=== PATIENT | male | born 2000 | race Caucasian/White ===

== ENCOUNTER 2019-08-24 15:06 | Emergency (ER) | payer OTHER ==
[~2019-08-24] VITALS: Ht 177.8 cm; Wt 65.8 kg
== END 2019-08-24 17:59 | disposition home or self-care (01) ==
LOC: ER 15:06
DX: M94.0 Chondrocostal junction syndrome [Tietze] (principal)

== ENCOUNTER 2020-08-29 08:37 | Emergency (ER) | payer OTHER ==
[~2020-08-29] VITALS: Ht 177.8 cm; Wt 68.9 kg
[2020-08-29] MEDS ORDERED: AMOX-CLAV 875-1 EACH PO (13:57)
== END 2020-08-29 15:05 | disposition home or self-care (01) ==
LOC: ER 08:37
DX: B34.9 Viral infection, unspecified (principal); Z11.52 Encounter for screening for COVID-19

== ENCOUNTER 2021-05-20 13:05 | Emergency (ER) | payer OTHER ==
[~2021-05-20] VITALS: Ht 177.8 cm; Wt 68.0 kg
[~2021-05-20 13:05] MED LIST: AMOX-CLAV 875-1 EACH PO
== END 2021-05-20 17:13 | disposition home or self-care (01) ==
LOC: ER 13:05
DX: J03.90 Acute tonsillitis, unspecified (principal); Z20.822 Contact with and (suspected) exposure to COVID-19

== ENCOUNTER 2021-06-01 08:35 | Emergency (ER) | payer OTHER ==
[~2021-06-01] VITALS: Ht 177.8 cm; Wt 65.8 kg
[2021-06-01] MEDS ORDERED: ZITHROMAX500 MG PO (11:35)
== END 2021-06-01 12:54 | disposition home or self-care (01) ==
LOC: ER 08:35
DX: R07.0 Pain in throat (principal); Z91.011 Allergy to milk products

== ENCOUNTER 2023-02-26 07:38 | Emergency (ER) | payer OTHER ==
[~2023-02-26] VITALS: Ht 175.3 cm; Wt 68.0 kg
[~2023-02-26 07:38] MED LIST changes: +ZITHROMAX500 MG PO
[2023-02-26 10:09] LABS: HEMATOCRIT 46.9 % (39.0-48.0); HEMOGLOBIN 16.1 g/dL (13-16.00); MEAN CELL VOLUME 87.3 fL (80.0-100.00); MEAN CORPUSCULAR HEMOGLOBIN 29.9 pg (27.00-32.0); MEAN CORPUSCULAR HGB CONC 34.2 g/dl (32.0-36.0); PLATELET COUNT 186 K/uL (150-450); RED BLOOD COUNT 5.37 M/uL (4.00-6.00); RED CELL DISTRIBUTION WIDTH 13.5 % (11.5-14.5)
== END 2023-02-26 11:31 | disposition home or self-care (01) ==
LOC: ER 07:39
PROVIDERS: Emergency Medicine
DX: U07.1 COVID-19 (principal); Z91.011 Allergy to milk products; Z20.822 Contact with and (suspected) exposure to COVID-19

== ENCOUNTER 2023-10-21 10:37 | Emergency (ER) | payer OTHER ==
[~2023-10-21] VITALS: Ht 177.8 cm; Wt 72.6 kg
[2023-10-21] MEDS ORDERED: 0.9 % SODIUM CHLORIDE 1,000 ML IV STA (12:02)
[2023-10-21] MEDS ORDERED: FAMOTIDINE/PF 20 MG/2 ML VIAL ONE (12:28)
[2023-10-21 12:51] LABS: HEMATOCRIT 48.1 % (39.0-48.0); HEMOGLOBIN 16.9 g/dL (13-16.00); MEAN CELL VOLUME 85.3 fL (80.0-100.00); MEAN CORPUSCULAR HEMOGLOBIN 29.9 pg (27.00-32.0); MEAN CORPUSCULAR HGB CONC 35.1 g/dl (32.0-36.0); PLATELET COUNT 213 K/uL (150-450); RED BLOOD COUNT 5.64 M/uL (4.00-6.00); RED CELL DISTRIBUTION WIDTH 13.4 % (11.5-14.5)
[2023-10-21 13:19] LABS: CALCIUM 9.2 mg/dL (8.5-10.1); CREATININE SERUM 1.16 mg/dL (0.70-1.30); GFR 77.35; POTASSIUM 4.09 mEq/L (3.5-5.1)
[2023-10-21 13:39] LABS: URINE APPEARANCE Clear; URINE BILIRRUBIN Negative (NEGATIVE); URINE BLOOD Negative; URINE COLOR Yellow; URINE GLUCOSE Negative (NEGATIVE); URINE LEUKOCYTE Negative; URINE NITRATE Negative; URINE PROTEIN Negative (NEGATIVE)
[2023-10-21 13:40] LABS: URINE EPITHELIAL CELLS 2.1 uL (0.0-38.8); URINE WBC 9.4 uL (0.0-23.2)
[2023-10-21 13:50] LABS: URINE BACTERIA 2.5 uL (0.0-1933); URINE CAST 0.76 uL (0.0-1.40); URINE KETONE 40 (NEGATIVE); URINE RBC 1.2 uL (0.0-20.8)
[2023-10-21] MEDS ORDERED: CIPROFLOXACIN IN 5 % DEXTROSE 400 MG/200 ML PIGGYBAG IV ONE ×2 (14:28→14:30)
[2023-10-21] MEDS ORDERED: METRONIDAZOLE/SODIUM CHLORIDE 500 MG/100 ML PIGGYBACK IV ONE ×2 (14:28→14:30)
== END 2023-10-21 16:35 | disposition home or self-care (01) ==
LOC: ER 10:38
PROVIDERS: Emergency Medicine
DX: K52.89 Other specified noninfective gastroenteritis and colitis (principal); Z91.011 Allergy to milk products

== ENCOUNTER 2024-03-19 15:19 | Emergency (ER) | payer OTHER ==
[~2024-03-19] VITALS: Ht 177.8 cm; Wt 72.6 kg
[2024-03-19] MEDS ORDERED: FAMOTIDINE/PF 20 MG in 0.9 % SODIUM CHLORIDE 8 ML IV PUSH STA (16:27)
[2024-03-19] MEDS ORDERED: HYOSCYAMINE SULFATE 0.125 MG TAB.SUBL SL ONE (16:30)
[2024-03-19] MEDS ORDERED: 0.9 % SODIUM CHLORIDE 1,000 ML IV SCH (16:30)
[2024-03-19] MEDS ORDERED: ONDANSETRON HCL 2 MG/ML VIAL IV ONE (16:30)
[2024-03-19] MEDS ORDERED: FAMOTIDINE/PF 20 MG/2 ML VIAL ONE (16:40)
[2024-03-19] MEDS ORDERED: HYOSCYAMINE SULFATE 0.125 MG TAB.SUBL ONE (16:40)
[2024-03-19] MEDS ORDERED: ONDANSETRON HCL 2 MG/ML VIAL ONE (16:40)
[2024-03-19] MEDS ORDERED: ACETAMINOPHEN 500 MG GEL..CAP PO ONE (16:51)
[2024-03-19 16:54] LABS: HEMOGLOBIN 15.7 g/dL (13-16.00); MEAN CELL VOLUME 86.2 fL (80.0-100.00); MEAN CORPUSCULAR HGB CONC 34.9 g/dl (32.0-36.0); PLATELET COUNT 190 K/uL (150-450); RED BLOOD COUNT 5.22 M/uL (4.00-6.00); RED CELL DISTRIBUTION WIDTH 13.8 % (11.5-14.5)
[2024-03-19 17:30] LABS: ALBUMIN 3.8 gm/dL (3.4-5.0); BILIRUBIN TOTAL 1.37 mg/dL (0.3-1.2); CALCIUM 9.4 mg/dL (8.5-10.1); CREATININE SERUM 1.19 mg/dL (0.70-1.30); GFR 75.1; GLOBULINA 3.7 G/DL (2.4-3.5); POTASSIUM 3.94 mEq/L (3.5-5.1); TOTAL PROTEIN 7.5 gm/dL (6.4-8.2)
[2024-03-19] MEDS ORDERED: METRONIDAZOLE/SODIUM CHLORIDE 500 MG/100 ML PIGGYBACK IV ONE ×2 (17:37→17:45)
[2024-03-19] MEDS ORDERED: METRONIDAZOLE500 MG PO (18:03)
[2024-03-19] MEDS ORDERED: PROTONIX40 MG PO (18:03)
[2024-03-19] MEDS ORDERED: ONDANSETRON ODT8 MG PO (18:03)
[2024-03-19] MEDS ORDERED: INTESTINEX680 M1 PO (18:03)
== END 2024-03-19 19:03 | disposition home or self-care (01) ==
LOC: ER 15:21
PROVIDERS: General Practice
DX: K52.9 Noninfective gastroenteritis and colitis, unspecified (principal); R11.2 Nausea with vomiting, unspecified; Z91.011 Allergy to milk products

== ENCOUNTER 2024-03-19 23:25 | Emergency (ER) | payer OTHER ==
[~2024-03-19] VITALS: Ht 177.8 cm; Wt 72.6 kg
[~2024-03-19 23:25] MED LIST changes: +INTESTINEX680 M1 PO; +METRONIDAZOLE500 MG PO; +ONDANSETRON ODT8 MG PO; +PROTONIX40 MG PO
[2024-03-20] MEDS ORDERED: METOCLOPRAMIDE HCL 5 MG/ML VIAL IM STA (03:40)
[2024-03-20] MEDS ORDERED: 0.9 % SODIUM CHLORIDE 1,000 ML IV STA (03:41)
[2024-03-20] MEDS ORDERED: FAMOtidine 10 MG/ML (4ML VIAL) IV PUSH STA (03:42)
[2024-03-20] MEDS ORDERED: DIPHENOXYLATE HCL/ATROPINE 1 UDTAB TABLET PO STA ×2 (03:43→04:11)
[2024-03-20] MEDS ORDERED: HYOSCYAMINE SULFATE 0.125 MG TAB.SUBL SL ONE (03:45)
[2024-03-20] MEDS ORDERED: HYOSCYAMINE SULFATE 0.125 MG TAB.SUBL ONE (03:49)
[2024-03-20] MEDS ORDERED: METOCLOPRAMIDE HCL 5 MG/ML VIAL ONE (03:49)
[2024-03-20] MEDS ORDERED: FAMOTIDINE/PF 20 MG/2 ML VIAL ONE (03:49)
[2024-03-20 04:34] LABS: HEMATOCRIT 44.3 % (39.0-48.0); HEMOGLOBIN 15.5 g/dL (13-16.00); MEAN CELL VOLUME 86.5 fL (80.0-100.00); MEAN CORPUSCULAR HEMOGLOBIN 30.3 pg (27.00-32.0); PLATELET COUNT 169 K/uL (150-450); RED BLOOD COUNT 5.12 M/uL (4.00-6.00); RED CELL DISTRIBUTION WIDTH 13.6 % (11.5-14.5)
[2024-03-20 04:35] LABS: CREATININE SERUM 1.16 mg/dL (0.70-1.30); GFR 77.35; POTASSIUM 3.99 mEq/L (3.5-5.1)
[2024-03-20] MEDS ORDERED: PIPERACILLIN/TAZOBACTAM SODIUM 3.375 GM VIAL IV STA (06:28)
[2024-03-20] MEDS ORDERED: PIPERACILLIN/TAZOBACTAM SODIUM 3.375 GM VIAL IV ONE (06:43)
== END 2024-03-20 07:45 | disposition home or self-care (01) ==
LOC: ER 23:27
DX: K52.9 Noninfective gastroenteritis and colitis, unspecified (principal); R11.10 Vomiting, unspecified; Z91.011 Allergy to milk products

== ENCOUNTER 2024-10-03 07:48 | Emergency (ER) | payer OTHER ==
[~2024-10-03] VITALS: Ht 177.8 cm; Wt 70.3 kg
[2024-10-03 07:55] VITALS: BP 122/73; O2SAT 99
[2024-10-03] MEDS ORDERED: BENZONATATE 200 MG CAPSULE PO ONE (10:15)
[2024-10-03] MEDS ORDERED: FAMOtidine 10 MG/ML (4ML VIAL) IV ONE (10:15)
[2024-10-03] MEDS ORDERED: CEFTRIAXONE SODIUM 1,000 MG VIAL IM ONE ×2 (10:15→11:45)
[2024-10-03 10:54] LABS: BASO % 0.2 % (0.1-1.2); EOS # 0.00 (0.04-0.54); EOS % 0.0 % (0.7-7.0); LYMPH # 1.24 (1.18-3.74); LYMPH % 7.4 % (19.3-53.1); MEAN PLATELET VOLUME 9.50 fl (9.4-12.4); MONO # 1.18 (0.24-0.82); MONO % 7.0 % (4.7-12.5); NEUT # 14.29 (1.56-6.13); NEUT % 85.0 % (34.0-71.1); RED CELL DISTRIBUTION WIDTH 12.7 % (11.6-14.4)
[2024-10-03 11:08] LABS: COVID-19 AG NEGATIVE (NEGATIVE)
[2024-10-03] MEDS ORDERED: AZITHROMYCIN500 MG PO (12:59)
[2024-10-03] MEDS ORDERED: BENZONATATE200 M1 PO (12:59)
[2024-10-03] MEDS ORDERED: PEPCID AC20 MG PO (12:59)
[2024-10-03] MEDS ORDERED: PROBIOTIC1 EAC2 PO (13:00)
== END 2024-10-03 13:25 | disposition home or self-care (01) ==
LOC: ER 07:48
PROVIDERS: General Practice
DX: R05.9 Cough, unspecified (principal); J00 Acute nasopharyngitis [common cold]; Z20.822 Contact with and (suspected) exposure to COVID-19; Z91.011 Allergy to milk products